=== PATIENT | female | born 1965 | race Caucasian/White ===

== ENCOUNTER 2019-05-26 11:20 | Emergency (ER) | payer BC ==
[2019-05-26] MEDS ORDERED: Ketorolac *IM* INJ* 60 MG/2 ML VIAL IM ONE (12:35)
[2019-05-26] MEDS ORDERED: Cyclobenzaprine TAB* 10 MG PO ONE (12:35)
[2019-05-26 14:04] VITALS: BP 123/89
--- NOTE | 2019-05-26 14:23 | ED ---
Back Pain - HPI Summary HPI Summary: This patient is a 53-year-old otherwise healthy female presenting to the ED after a fall 2 days ago. Patient states she fell directly onto her left side injuring her left ribs. She states since then, she feels the pain has gotten worse. Pain is notably over the left ribs without pain to the left upper quadrant. Denies any pain to the left shoulder or upper extremity. She denies hitting her head or LOC. She denies having a syncopal episode just prior to this event. Patient has good air exchange, states she does not want to take a deep breath due to pain. She has been taking [id number] medications as well as her prescribed Flexeril without relief of symptoms. - History of Current Complaint Chief Complaint: EDChestWallPain Stated Complaint: FALL-LEFT RIB PAIN PER PT Time Seen by Provider: 05/26/19 12:14 Hx Obtained From: Patient Onset/Duration: Sudden Onset Onset/Duration: Started Hours Ago Timing: Constant Back Pain Location: Is Discrete @ - left ribs Severity Initially: Moderate Severity Currently: Moderate Pain Intensity: 3 Pain Scale Used: 0-10 Numeric Character: Aching Alleviating Symptom(s): Rest, Position Associated Signs And Symptoms: Positive: Negative. Negative: Swelling, Redness , Bruising, Weakness, Numbness, Bladder Incontinence, Bowel Incontinence - Allergies/Home Medications Allergies/Adverse Reactions: Allergies Allergy/AdvReac Type Severity Reaction Status Date / Time No Known Allergies Allergy Verified 05/26/19 11:26 Home Medications: Home Medications Cholecalciferol (Vitamin D3) [Vitamin D3] 50,000 mcg PO WEEKLY 05/26/19 [ History Confirmed 05/26/19] Cyanocobalamin (Vitamin B-12) [Vitamin B-12] 1,000 mcg PO DAILY 05/26/19 [ History Confirmed 05/26/19] Cyclobenzaprine TAB* [Flexeril 10 MG TAB*] 5 mg PO TID PRN 05/26/19 [History Confirmed 05/26/19] Venlafaxine ER (NF) [Effexor ER (NF)] 75 mg PO BEDTIME 05/26/19 [History Confirmed 05/26/19] Venlafaxine HCl [Effexor XR-] 37.5 mg PO DAILY 05/26/19 [History Confirmed 05/26] clonazePAM TAB(*) [KlonoPIN TAB(*)] 0.5 mg PO BID PRN 05/26/19 [History Confirmed 05/26/19] PMH/Surg Hx/FS Hx/Imm Hx Previously Healthy: Yes - Immunization History Hx Pertussis Vaccination: No Immunizations Up to Date: Yes Infectious Disease History: No Infectious Disease History: Denies: Traveled Outside the [place] in Last 30 Days - Social History Occupation: Employed Full-time Lives: With Family Alcohol Use: Weekly Alcohol Amount: 3-4 Hx Substance Use: No Substance Use Type: Reports: None Smoking Status (MU): Never Smoked Tobacco Review of Systems Negative: Fever, Chills, Fatigue, Skin Diaphoresis Negative: Palpitations, Chest Pain Negative: Shortness Of Breath, Cough Genitourinary: Negative Positive: no symptoms reported, see HPI Positive: Arthralgia - left ribs Negative: Rash, Bruising All Other Systems Reviewed And Are Negative: Yes Physical Exam Triage Information Reviewed: Yes Vital Signs On Initial Exam: Initial Vitals Temp Pulse Resp BP Pulse Ox 97.7 F 110 22 146/103 97 05/26/19 11:21 05/26/19 11:21 05/26/19 11:21 05/26/19 11:21 05/26/19 11:21 Vital Signs Reviewed: Yes Appearance: Positive: Well-Appearing, Well-Nourished Skin: Positive: Warm, Skin Color Reflects Adequate Perfusion Head/Face: Positive: Normal Head/Face Inspection Eyes: Positive: EOMI, POLA, Conjunctiva Clear Respiratory/Lung Sounds: Positive: Clear to Auscultation, Breath Sounds Present Cardiovascular: Positive: RRR, Pulses are Symmetrical in both Upper and Lower Extremities Musculoskeletal: Positive: Normal, Strength/ROM Intact Neurological: Positive: Speech Normal Psychiatric: Positive: Normal, Affect/Mood Appropriate AVPU Assessment: Alert Procedures - Sedation Patient Received Moderate/Deep Sedation with Procedure: No Diagnostics - Vital Signs Vital Signs Temp Pulse Resp BP Pulse Ox 05/26/19 14:02 97.9 F 99 20 123/89 95 05/26/19 11:21 97.7 F 110 22 146/103 97 - Laboratory Lab Statement: Any lab studies that have been ordered have been reviewed, and results considered in the medical decision making process. Back Pain Course/Dx - Course Course Of Treatment: Patient is evaluated for left-sided rib pain. She has no chest pain on palpation. There is rib pain on light palpation to the upper ribs. No back pain to the cervical, thoracic or lumbar spine. Denies head injury. Lungs are CTA. RRR. Patient is a and O 3. She was given Toradol and Flexeril in the ED with good relief. States pain reduced from a 10/10 to a 1/10. Patient is resting comfortably. She is prescribed both Toradol and Flexeril. She is already prescribed Flexeril, however I have increased her dose to 10 mg twice a day 3 days. She is given a note for work. Diagnosed with left with contusion. - Diagnoses Differential Diagnosis/HQI/PQRI: Positive: Strain, Sprain Provider Diagnoses: Contusion of rib on left side Discharge ED - Sign-Out/Discharge Documenting (check all that apply): Patient Departure - Discharge Plan Condition: Stable Disposition: HOME Prescriptions: Cyclobenzaprine TAB* [Flexeril TAB*] 10 mg PO BID PRN #6 tab PRN Reason: Spasms Ketorolac TAB * [Toradol TAB *] 10 mg PO Q6H #16 tab Patient Education Materials: Rib Contusion (ED) Forms: *Work Release Referrals: Jonatan Copeland DO [Primary Care Provider] - Additional Instructions: Flexeril 10mg four times daily for spasms Toradol 10mg four times daily Moist heat to the area Out of work x 2 days - Billing Disposition and Condition Condition: STABLE Disposition: Home - Attestation Statements Provider Attestation: I was available for consult. This patient was seen by the [facility]. The patient was not presented to, seen by, or examined by me. Victor M Jaramillo MD
== END 2019-05-26 14:02 | disposition home or self-care (01) ==
LOC: ED 11:20
DX: S20.212A Contusion of left front wall of thorax, initial encounter (principal); R07.81 Pleurodynia; R21 Rash and other nonspecific skin eruption; W19.XXXA Unspecified fall, initial encounter; Y92.9 Unspecified place or not applicable; Z79.899 Other long term (current) drug therapy
CPT/HCPCS: 96372; 99282; A9270-GY; J1885

== ENCOUNTER 2019-07-13 01:50 | Inpatient (IN) | payer BC ==
[2019-07-13] MEDS ORDERED: Amiodarone 150 MG IVPREMIX* 150 MG/100 ML BAG IV ONE ×2 (02:32→02:46)
[2019-07-13] MEDS ORDERED: Ondansetron INJ* 2 MG/ML VIAL IV PRN (02:37)
[2019-07-13] MEDS ORDERED: Al Hydrox/Mg Hydrox/Simet LIQ* 30 ML UDC PO PRN (02:37)
[2019-07-13] MEDS ORDERED: Amiodarone 360 MG IVPREMIX* 360 MG/200 ML BAG IV ONE ×2 (02:46→10:10)
[2019-07-13] MEDS: Amiodarone 360 MG IVPREMIX* 360 MG/200 ML BAG IV ONE ×2 (03:20→08:57)
[2019-07-13] MEDS ORDERED: Iohexol 350* (CONTRAST) 500 ML MDV IV ONE (05:16)
[2019-07-13] MEDS ORDERED: Pantoprazole TAB * 40 MG TAB PO ONE (05:23)
[2019-07-13 06:33] LABS: ABS Lymphocytes 2.1 10^3/ul (1.0-4.8); ABS Monocytes 0.4 10^3/ul (0-0.8); ABS Neutrophils 2.9 10^3/ul (1.5-7.7); Eosinophil % 0.2 %; Hematocrit 35 % (35-47); Hemoglobin 11.8 g/dL (12.0-16.0); Lymphocyte % 38.5 %; Mean Corpuscular HGB Conc 34 g/dL (31-36); Mean Corpuscular Hemoglobin 32 pg (27-31); Mean Corpuscular Volume 93 fL (80-97); Mean Platelet Volume 7.9 fL (7.4-10.4); Nucleated Red Blood Cells % 0.1; Platelet Count 248 10^3/uL (150-450); Red Blood Count 3.72 10^6 /uL (3.70-4.87); Red Cell Distribution Width 15 % (10-15); White Blood Count 5.5 10^3/uL (3.5-10.8)
[2019-07-13 06:43] LABS: C Reactive Protein 88.31 mg/L (<8.01); Calcium 8.2 mg/dL (8.6-10.3); EGFR African American 168.4 (>60); EGFR Non-African American 139.2 (>60); Magnesium 1.9 mg/dL (1.9-2.7); Potassium 3.6 mmol/L (3.5-5.0)
[2019-07-13 06:46] LABS: Troponin I 0.01 ng/mL (<0.03)
--- NOTE | 2019-07-13 06:55 | HP ---
DATE OF ADMISSION: 07/13/2019 HISTORY OF PRESENT ILLNESS: This is a 53-year-old female with past medical history significant for GERD, anxiety, and arthritis. No established cardiac history. The patient is a transfer from [facility]. She presented with acute onset, worsening anterior chest spasms radiating toward the right side of her neck and back for one-day duration. This chest discomfort worsens with recumbency and deep inspiration. Patient stated that she went to her primary care physician in the morning for similar but more milder symptoms. There, she was tested for COVID-19 with a heart rate in the 120s. She was sent home with a Z-Christo and prednisone taper. Symptoms worsened as well as with pain which she feels them all with recumbency. There was associated shortness of breath and lightheadedness. The shortness of breath is worse with the palpitations she's feeling as well. She denied cough, fever, leg swelling, diplopia, and also denied prior history of DVT or blood clots. 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 She has had syncopal episodes in the past. In [facility] before she was transferred, she received therapeutic dose of Lovenox 95 mg subcutaneous. [facility] also reached out to Dr. Jluis Mckeon, the neurodiagnostic tech, who reviewed the patient's case with them, and they requested the patient should be sent to ICU when she arrives here, and also requested the patient be digitalized with 0.25 mg IV twice 30 mins apart. Patient also received ("Cardizem") 10 mg IV push three times and it did not break the A-fib, and she was subsequently placed on ( "Cardizem") drip, and transferred over to [facility]. PAST MEDICAL HISTORY: As already stated: 1. Anxiety. 2. GERD. 3. Arthritis. 4. Obesity. PAST SURGICAL HISTORY: Patient has had gastric bypass with bowel resection. HOME MEDICATIONS: 1. Venlafaxine 75 mg - patient states that she takes this at night. 2. Clonazepam 0.5 mg po bid prn for anxiety. 3. Vitamin D ergocalciferol 50,000 units po weekly. 4. Ascorbic acid 500 mg po daily. 5. Cyanocobalamin 500 mcg po daily. 6. Cyclobenzaprine 5 mg po tid. 7. Hydrocodone-acetaminophen 5/325 mg tablet, one tablet po q6 prn for severe pain. ALLERGIES: There are no known drug allergies. FAMILY HISTORY: Significant for heart disease, diabetes, and hypertension. SOCIAL HISTORY: She's a smoker. Works as a nurse at a local residential. Occasional alcohol use. Denied illicit drug use. REVIEW OF SYSTEMS: Constitutional - denies fever. HEENTM - denies, no symptoms reported. Respiratory - reports shortness of breath, dizziness, denies cough. Cardiovascular - reports chest pain, palpitations, denies syncope. GI - denies abdominal pain, nausea and vomiting. Musculoskeletal - reports neck pain. Skin - denies rash or any injury. Neurological - reports lightheadedness with palpitations, denies headache. Hematologic and lymphatics - denies blood clots or easy bleeding. All other systems reviewed are negative except as reported in the HPI. PHYSICAL EXAMINATION VITAL SIGNS: On arrival, temperature 97.8, respiratory rate 20, heart rate fluctuates between 120 to 140s, blood pressure 101/54, O2 sat 96%. GENERAL: Well-nourished, well-developed, not in any overt distress. HEENT: Head - atraumatic, normocephalic. Eyes - bilateral eye PERRL, bilateral eyes sclerae anicteric, conjunctiva normal, EOMI. Ears, nose, throat - normal inspection. Mouth and oropharynx - mucous membrane moist, no erythema, no exudate. NECK: Supple, no thyromegaly, no JVD. RESPIRATORY: Chest clear to auscultation bilaterally. No wheezes, no rales, no rhonchi, no crackles. CHEST: Symmetrical. CARDIOVASCULAR: Tachycardia, irregularly irregular. Peripheral pulses - 1+ radial right and the left. GI/ABDOMEN: Obese, soft, nondistended, nontender. Bowel sounds all four quadrants normal, no palpable masses. No guarding. BACK: No CVA tenderness. EXTREMITIES: Calves - non-tender, no edema. Negative Dima's sign. No tenderness to palpation of the deep venous system bilaterally. NEUROLOGIC: Alert, awake and oriented x3. CN II-XII grossly intact, no focal deficits. PSYCHIATRIC: Normal mood, normal affect. SKIN: Warm, dry, normal color, no rashes. DIAGNOSTIC STUDIES/LAB DATA: Hematology on arrival - WBC 6.69, RBC 4.57, hemoglobin 14.1, hematocrit 41.9, MCV 91.7, MCH 30.9, RDW 14.4, platelet count 355, MPV 9.2, neutrophils 7.27, lymphocytes 21.7. Chemistry - sodium 141, potassium 3.8, chloride 104, carbon dioxide 19, anion gap 18, BUN (pending), creatinine 0.7, estimated GFR non- 88, glucose 160, calcium 8.9 , total bilirubin 0.4, AST 55, ALT 46, alkaline phosphatase 106, troponin 0.01. Serum protein - total protein 7.7, albumin 3.3, globulin 4.4. TSH 1.44. INR 1.01. D-dimer 418. (This result was texted through the Backline from Cm Lacey MD at [facility]). BNP 86.3 EKG report from [facility] Afib with RVR with normal axis. No ischemic changes noted in ST segment. Chest x-ray report - no significant interval change from chest x-ray obtained earlier. Awaiting CTA report to rule out PE. ASSESSMENT AND PLAN: A 53-year-old female with no established cardiac history, a transfer from [facility], presents with acute onset worsening anterior chest spasms radiating to the right side of her neck and back and A-fib with RVR. Patient will be admitted to the unit. For the chest pain, pain control, monitor cardiac enzymes. For A-fib with RVR - patient came in on Cardizem drip and a loading dose of digoxin for A-fib with RVR with compromised blood pressure ranging between systolic pressure of 90-101. I will start patient on amiodarone drip and monitor. Patient to continue with Digoxin 0.25 mg for the 3rd loading dose 0900 a.m. If the blood pressure improves and the A-fib did not break, will consider adding a beta kalyn. I will also order CTA of the chest to rule out PE. TSH noted within normal range. I will also request an echocardiogram for cardiac function. Cardiology to follow up in a.m. For A-fib - patient already received therapeutic Lovenox at [facility], 95 mg subcu. I will start patient on Eliquis 5 mg bid, and monitor. For anxiety - patient to continue her home medication of venlafaxine 75 mg HS and Klonopin 0.5 mg prn for anxiety. For GERD - PPI. DIET: Cardiac diet. DVT PROPHYLAXIS: Patient already had therapeutic Lovenox at 5 mg subcu. Patient to start on Eliquis. CODE STATUS: The patient will remain full code at this time. Fluids and electrolytes - will be repleted as needed. Follow up a.m. labs. Follow up CTA report. Follow up echocardiogram. Follow up cardiology consult. COVID-19 r/o per protocol (Isolation protocol). TIME SPENT: Time spent on this admission greater than 65 minutes. [id number]/CPS #: [id number] [facility]
[2019-07-13] MEDS: Cyanocobalamin TAB* 500 MCG PO SCH (09:05)
[2019-07-13] MEDS: Apixaban* 5 MG TAB PO SCH ×2 (09:05→21:07)
[2019-07-13] MEDS: Digoxin TAB* 0.25 MG PO SCH (09:06)
[2019-07-13] MEDS: Docusate CAP* 100 MG PO SCH ×2 (09:06→21:07)
[2019-07-13] MEDS ORDERED: Potassium Chlor TAB* 10 MEQ TAB.ER PO ONE (09:11)
[2019-07-13] MEDS: clonazePAM TAB(*) 0.5 MG PO PRN ×2 (09:29→21:07)
--- NOTE | 2019-07-13 09:36 | ECHO ---
*[facility]* [place] [address] Fax #: [phone] Transthoracic Echocardiogram Patient: Christine Metz : 1965 Study Date: 07/13/2019 Age: 53 Gender: F HR: 150 bpm Height: 61 in /154.9 cm BSA: 2.05 m^2 Weight: 204.6 lb /93 kg BMI: 38.7 kg/m^2 *Safety Leader: * Analy Hernandez [facility] *Referring Physician: * Bethel Kumar *Reading Physician: * Jluis Mckeon MD Indications: Atrial Fibrillation. SOB. Chest Pain, unspecified. History: Palpitations. Risk factors: Obese. Conclusions Summary: - Left ventricle: The cavity size is below normal. Wall thickness is mildly to moderately increased. Systolic function is at the lower limits of normal. The estimated ejection fraction is 50-55%. Wall motion is normal; there are no regional wall motion abnormalities. - Right ventricle: Systolic function is normal. Systolic pressure is within the normal range. - Left atrium: The atrium is mildly dilated. - Mitral valve: There is trace regurgitation. - Aortic valve: There is no evidence of stenosis. - Tricuspid valve: There is mild regurgitation. - Study data: No prior study is available for comparison. Study data: Transthoracic echocardiogram. Procedure: Transthoracic echocardiography was performed. Image quality was fair. Complete 2D, spectral Doppler, and color flow Doppler. Location: ICU Patient status: Inpatient. Patient room number: ICU-13. No prior study is available for comparison. Rhythm: Atrial fibrillation. Findings Left ventricle: The cavity size is below normal. Wall thickness is mildly to moderately increased. Systolic function is at the lower limits of normal. The estimated ejection fraction is 50-55%. Wall motion is normal; there are no regional wall motion abnormalities. Left ventricular diastolic function parameters are indeterminate. Right ventricle: The cavity size is normal. Systolic function is normal. Systolic pressure is within the normal range. Left atrium: The atrium is mildly dilated. Right atrium: The atrium is normal in size. Mitral valve: The leaflets are mildly thickened. There is no evidence of stenosis. There is trace regurgitation. Aortic valve: The valve is trileaflet. The leaflets are mildly thickened. There is no evidence of stenosis. There is trace regurgitation. Tricuspid valve: The leaflets are normal thickness. There is no evidence of stenosis. There is mild regurgitation. Pulmonic valve: The leaflets are normal thickness. There is no evidence of stenosis. There is trace regurgitation. Aorta: Aortic root: The aortic root is appears normal. Ascending aorta: The ascending aorta is appears normal. Aortic arch: The aortic arch is appears normal. Pericardium: A prominent pericardial fat pad is present. There is no significant pericardial effusion. Pulmonary arteries: The main pulmonary artery is normal-sized. Systolic pressure is within the normal range. Systemic veins: Inferior vena cava: Not well visualized. Measurements Left ventricle Value Ref Aortic valve Value Ref REGINA, LAX (L) 3.4 cm 3.8 - Clementina diam, S (L) 1.8 cm 1.9 - 2.7 5.2 Peak v, S 1.01 m/sec --------- ESD, LAX (L) 1.8 cm 2.2 - VTI, S 14.9 cm --------- 3.5 Mean grad, S 2.9 mm Hg --------- FS, LAX (H) 53 % 27 - 45 Peak grad, S 4.1 mm Hg --------- PW, ED, LAX (H) 1.2 cm 0.6 - LVOT/AV, VTI ratio 0.87 --------- 0.9 FS (H) 53 % 27 - 45 Mitral valve Value Ref Mid-wall FS 14 % -------- Peak E 0.82 m/sec --------- PW, ED (H) 1.2 cm 0.6 - Peak A 0.01 m/sec --------- 0.9 Decel time 77 ms --------- E', lat clementina, TDI 11.9 cm/sec >=10.0 Peak grad, D 2.7 mm Hg -- ------- E/e', lat clementina, TDI 7 -------- Peak E/A ratio 133.89 ----- ---- E', med clementina, TDI 8.0 cm/sec >=7.0 E/e', med clementina, TDI 10 -------- Pulmonic valve Value Ref E', avg, TDI 10.0 cm/sec -------- Peak v, S 1.16 m/sec ----- ---- E/e', avg, TDI 8 <=14 Peak grad, S 5.4 mm Hg -- ------- LVOT Value Ref Tricuspid valve Value Ref Peak alexandre, S 0.93 m/sec -------- TR peak v 2.34 m/sec <=2.8 VTI, S 12.9 cm -------- Peak RV-RA grad, S 22 mm Hg --------- Peak grad, S 3 mm Hg -------- Mean grad, S 2 mm Hg -------- Aortic root Value Ref Root diam 2.9 cm <4.2 Ventricular septum Value Ref IVS, ED (H) 1.3 cm 0.6 - Ascending aorta Value Ref 0.9 AAo AP diam, S 3.1 cm --------- Right ventricle Value Ref Aortic arch Value Ref AW thickness, ED (H) 0.6 cm 0.1 - Arch diam 2.2 cm --------- 0.5 REGINA, LAX 2.7 cm -------- Decending aorta Value Ref REGINA minor ax, A4C 2.8 cm 1.9 - Darby peak alexandre 0.65 m/sec --------- mid 3.5 Pressure, S 30 mm Hg -------- Pulmonary artery Value Ref Pressure, S 24.6 mm Hg --------- Left atrium Value Ref LA ID 4.1 cm -------- SI dim ES, LAX 4.1 cm -------- ML dim, A4C 4.5 cm -------- SI dim, A4C 5.7 cm -------- Vol, ES, 2-p 64 ml -------- Vol/bsa, ES, 2-p 31 ml/m^2 16 - 34 Right atrium Value Ref SI dim, ES 4.7 cm 3.4 - 5.3 ML dim, ES, A4C 3.8 cm 2.6 - 4.4 Estimated RAP 8 mm Hg -------- Legend: (L) and (H) ana maria values outside specified reference range. Prepared and electronically signed by Jluis Mckeon MD 07/13/2019 09:35
[2019-07-13 10:20] LABS: Erythrocyte Sed Rate 30 mm/Hr (0-29)
--- NOTE | 2019-07-13 14:07 | CONS ---
CC: Dr. Copeland * CONSULTATION REPORT: DATE OF CONSULT: 07/13/19 ATTENDING PHYSICIAN: Dr. Jluis Mckeon, Cardiology.* (DICTATED BY KOSTAS COLEMAN NP) PRIMARY CARE PHYSICIAN: Dr. Copeland. CHIEF COMPLAINT: Diaphoresis, chest pain, shortness of breath, tachycardia. HISTORY OF PRESENT ILLNESS: This is a pleasant 53-year-old female patient with a notable history of gastric reflux, anxiety, osteoarthritis, obesity, and moderate alcohol consumption, who presented to [facility] on 07/12/19 due to ongoing complaints of tachycardia, shortness of breath, and pleuritic chest pain. The patient states she has been in her usual state of health up until this past 07/11/19. The patient states that during the daytime hours on 07/11/19 she started to develop pleuritic chest pain that was worse with inspiration and supine position. She states it was not related to activity. She also reports increased fatigue, sensation of heart racing and irregularity, and intermittent shortness of breath. The patient states she went to work Friday where she does overnight shifts at [employer], she is employed as a nurse. Throughout her overnight shift Friday she continued to have intermittent sensation of heart racing and irregularity with pleuritic chest pain described as spasming radiating into her neck with lightheadedness and shortness of breath. The patient states that when she completed her shift Friday, she called her primary physician and was evaluated. She states she was tested for influenza and COVID-19. She adds that her heart rate was 120 beats per minute at Dr. Copeland' office. She denies having an EKG. She states she was prescribed Z-Christo and steroid taper and was asked to self- quarantine at home. She states that when she got home she was able to sleep for 4 to 5 hours; however, when she woke up yesterday evening, she continued to experience diaphoresis, sensation of heart racing and irregularity, and pleuritic chest pain described as spasming radiating into her neck. Again, it was positional. She opted for evaluation at [facility]. While being evaluated, she was found to be in AFib with rapid ventricular rate response. Troponin was 0.1. TFTs were normal. She was given IV Cardizem, IV digoxin, and was transferred to [facility]. She has since been given 150 mg bolus of amiodarone. and has been maintained on amiodarone drip going at a milligram a minute. She continues to be in AFib with rapid ventricular rate response ranging from 130 to 160 beats per minute. She continues to be symptomatic with a sensation of heart racing and irregularity. She is not tachypneic. She denies diarrhea. Denies objective fever. Does add that she had an episode of emesis yesterday. Denies hematemesis, abdominal pain, or diarrhea. She states that last episode of chest pain was yesterday in the emergency department at [place]. CTA is pending to rule out PE. The patient had echocardiogram this morning, which is pending. She offers no other complaints at this time. She states that although several inmates have been quarantined at [employer] for rule out COVID, they have all tested negative. She is not aware of any positive COVID exposure. Chest pain again was not related to exertion, but rather was pleuritic in nature and worse in the supine position. Last ischemic evaluation per the patient was at [place] in the past 2 years due to complaints of chest pain. She states she had a nuclear stress test, which was "normal." PAST MEDICAL HISTORY: 1. GERD. 2. Anxiety/depression. 3. Arthritis. 4. Obesity. 5. Moderate alcohol consumption. PAST SURGICAL HISTORY: Includes: 1. Gastric bypass. 2. Bowel resection. HOME MEDICATIONS: Per admission med rec include: 1. Klonopin 0.5 mg p.o. b.i.d. 2. Venlafaxine ER 75 mg a day. 3. Vitamin B12 1000 mcg daily. 4. Effexor 37.5 mg daily. 5. Toradol 10 mg p.o. q.6 hours p.r.n. 6. Flexeril as needed. ALLERGIES: Listed as no known drug allergies. Denies allergy to contrast dye or shellfish. FAMILY HISTORY: Positive for hypertension and hyperlipidemia. SOCIAL HISTORY: The patient is , lives home alone. She is a former tobacco user, quit smoking approximately 5 years ago. She consumes 4 to 6 shots of vodka a day. She is employed as a nurse at [employer]. Denies illegal substance use. REVIEW OF SYSTEMS: All systems have been reviewed and are otherwise negative except what was above mentioned in the HPI. PHYSICAL EXAM: Vital Signs: Last temperature was at [place], per the patient she was afebrile; pulse is 150 beats per minute; respirations 24; oxygenation 96 % on room air; blood pressure 103/85. General: The patient is sitting upright in bed upon entering room, appears in no apparent distress, is cooperative and pleasant, appears well nourished. HEENT: Head is atraumatic, normocephalic. Oral mucosa is moist. Tongue is midline. Neck: Supple. Trachea midline. No JVD. No carotid bruits. Cardiac: Tachycardic. S1, S2. Irregular rate and rhythm. No murmur, rub, or gallop noted. Lungs: Auscultated posteriorly. No evidence of adventitious breath sounds. /GI: Abdomen is obese, soft, nontender, nondistended. Normoactive bowel sounds x4. Extremities: No pedal edema, no clubbing, no cyanosis. Peripheral Vascular: 3+ brachial pulse palpated bilaterally and symmetrically, 2+ dorsalis pedis palpated bilaterally and symmetrically. DIAGNOSTIC STUDIES/LAB DATA: Blood work from 07/13/19 reviewed. White count 5.5, hemoglobin 11.8, hematocrit 35, platelets 284,000. Sodium 138, potassium 3.6, chloride 109, carbon dioxide 21, creatinine 0.47. C-reactive protein 88. Magnesium 1.9, glucose 138. CTA pending. Echocardiogram pending. ECG on 07/13/19 reviewed. AFib, RVR, rate 149 beats per minute with minimal inferolateral ST depression. No ST segment elevation appreciated. ASSESSMENT AND PLAN: 1. Newly diagnosed symptomatic atrial fibrillation with rapid ventricular response. CHADS-VASc 1 given gender is female. The patient is on IV amiodarone. Systolic blood pressure is 103. She is status post IV digoxin load. Cardizem was discontinued due to relative hypotension. She continues to be aware of atrial fibrillation. It is manifesting as sensation of palpitations and heart racing. Etiology not known at this time. TFTs were normal. She does report moderate to heavy alcohol use history, consuming anywhere from 4 to 6 shots of vodka a day. She is currently being ruled out for COVID-19. CTA is pending to rule out pulmonary embolism. At this current time , recommend rate control approach. We would continue IV amiodarone with a goal of keeping potassium more than 4, magnesium more than 2. Continue digoxin and await further testing. Unfortunately, due to the patient being ruled out for COVID, we would not proceed with transesophageal echocardiogram cardioversion at this time. Duration of time in atrial fibrillation appears to have been at least since 07/11/19; however, she reports a longstanding history of daily palpitations for several years, thus duration of time in atrial fibrillation is truly unknown. Echo to be updated to rule out LV dysfunction and pericardial effusion.continue eliquis 5mg PO BID. 2. Complaints of pleuritic chest pain, intermittent shortness of breath, and diaphoresis. COVID-19 test obtained and is pending. The patient to have CTA to rule out pulmonary embolism. Defer to primary team. 3. History of moderate to heavy alcohol use. Defer to primary team. 4. Disposition: Pending course. The patient is full code. Dr. Jluis Mckeon has personally seen and examined the patient and agrees with the above assessment and plan. KOSTAS COLEMAN NP [id number]/CPS #: [id number] CELINE
[2019-07-13] MEDS: Amiodarone 360 MG IVPREMIX* 360 MG/200 ML BAG IV SCH (15:15)
[2019-07-13] MEDS: Venlafaxine EXT RELEASE CAP* 75 MG PO SCH (21:06)
[2019-07-13] MEDS: Cyclobenzaprine TAB* 10 MG PO PRN (21:07)
[2019-07-14] MEDS: Amiodarone 360 MG IVPREMIX* 360 MG/200 ML BAG IV SCH (01:21)
[2019-07-14 06:02] LABS: ABS Lymphocytes 1.4 10^3/ul (1.0-4.8); ABS Monocytes 0.3 10^3/ul (0-0.8); Eosinophil % 1.2 %; Hematocrit 35 % (35-47); Lymphocyte % 37.4 %; Mean Corpuscular HGB Conc 34 g/dL (31-36); Mean Corpuscular Hemoglobin 32 pg (27-31); Mean Corpuscular Volume 93 fL (80-97); Mean Platelet Volume 7.7 fL (7.4-10.4); Nucleated Red Blood Cells % 0.2; Platelet Count 226 10^3/uL (150-450); Red Blood Count 3.75 10^6 /uL (3.70-4.87); Red Cell Distribution Width 15 % (10-15); White Blood Count 3.7 10^3/uL (3.5-10.8)
[2019-07-14 06:21] LABS: BUN/Creatinine Ratio 16.1 (8-20); Calcium 8.5 mg/dL (8.6-10.3); EGFR African American 137.6 (>60); EGFR Non-African American 113.7 (>60); Potassium 3.8 mmol/L (3.5-5.0)
[2019-07-14] MEDS: Digoxin TAB* 0.25 MG PO SCH (07:57)
[2019-07-14] MEDS: Pantoprazole TAB * 40 MG TAB PO SCH (07:58)
[2019-07-14] MEDS: Cyanocobalamin TAB* 500 MCG PO SCH (07:58)
[2019-07-14] MEDS: Docusate CAP* 100 MG PO SCH ×2 (07:58→21:07)
[2019-07-14] MEDS: Apixaban* 5 MG TAB PO SCH ×2 (07:58→21:10)
[2019-07-14] MEDS: Amiodarone TAB* 400 MG PO SCH ×2 (11:17→21:35)
[2019-07-14] MEDS: Acetaminophen TAB* 325 MG PO PRN ×3 (11:17→21:09)
--- NOTE | 2019-07-14 11:34 | PN ---
Subjective Date of Service: 07/14/19 - CC: SOB, PAF Interval History: Pt now maintaining sinus rhythm. Complete resolution of SOB, pleuritic CP New c/o: awareness of lymph nodes anterior neck, felt them swallowing. Denies dysphagia, denies sore throat. Medications Active Medications: Acetaminophen (Tylenol Tab*) 650 mg PO Q4H PRN PRN Reason: MILD PAIN or TEMP > 100.4 Last Admin: 07/14/19 11:17 Dose: 650 mg Al Hydrox/Mg Hydrox/Simethicone (Maalox Plus*) 30 ml PO Q6H PRN PRN Reason: INDIGESTION Amiodarone HCl (Cordarone Tab*) 400 mg PO BID [facility] Stop: 07/20/19 22:00 Last Admin: 07/14/19 11:17 Dose: 400 mg Apixaban (Eliquis*) 5 mg PO BID [facility] Last Admin: 07/14/19 07:58 Dose: 5 mg Clonazepam (Klonopin Tab(*)) 0.5 mg PO BID PRN PRN Reason: INSOMNIA Last Admin: 07/13/19 21:07 Dose: 0.5 mg Cyanocobalamin (Vitamin B12 Tab*) 1,000 mcg PO DAILY [facility] Last Admin: 07/14/19 07:58 Dose: 1,000 mcg Cyclobenzaprine HCl (Flexeril Tab*) 5 mg PO TID PRN PRN Reason: SPASMS Last Admin: 07/13/19 21:07 Dose: 5 mg Digoxin (Lanoxin Tab*) 0.25 mg PO 0900 [facility] Last Admin: 07/14/19 07:57 Dose: 0.25 mg Docusate Sodium (Colace Cap*) 100 mg PO BID [facility] Last Admin: 07/14/19 07:58 Dose: Not Given Ondansetron HCl (Zofran Inj*) 4 mg IV Q4H PRN PRN Reason: NAUSEA/VOMITING Pantoprazole Sodium (Protonix Tab*) 40 mg PO DAILY [facility] Last Admin: 07/14/19 07:58 Dose: Not Given Venlafaxine HCl (Effexor Xr Cap*) 75 mg PO BEDTIME [facility] Last Admin: 07/13/19 21:06 Dose: 75 mg Objective Vital Signs: Temp Pulse Resp BP Pulse Ox 98.8 F 81 16 94/53 96 07/14/19 08:00 07/14/19 08:01 07/14/19 08:01 07/14/19 08:01 07/14/19 08:01 Oxygen Devices in Use Now: None Appearance: Older middle aged woman, comfortable. Lying at 10 degrees Eyes: No Scleral Icterus, PERRLA Ears/Nose/Mouth/Throat: Clear Oropharnyx, Mucous Membranes Moist Neck: Trachea Midline, No Thyroid Enlargement, Masses - no appreciation of lymphadenopathy the patient feels. Respiratory: Symmetrical Chest Expansion and Respiratory Effort, Clear to Auscultation Cardiovascular: NL Sounds; No Murmurs; No JVD, RRR Extremities: No Edema, No Clubbing, Cyanosis Skin: No Rash or Ulcers Neurological: Alert and Oriented x 3, NL Muscle Strength and Tone Lines/Tubes/Other Access: Clean, Dry and Intact Peripheral IV Laboratory Results: 07/14/19 05:50 07/14/19 05:50 07/13/19 05:45 Troponin I 0.01 CRP 88 ESR 30 Diagnostic Imaging: *[facility]* [place] [address] Fax #: [phone] Transthoracic Echocardiogram Patient: Sheba Sullivan : 1965 Study Date: 07/13/2019 Age: 53 Gender: F HR: 150 bpm Height: 61 in /154.9 cm BSA: 2.05 m^2 Weight: 204.6 lb /93 kg BMI: 38.7 kg/m^2 *Boatswains Mate: * Analy Hernandez [facility] *Referring Physician: * Bethel Kumar *Reading Physician: * Jluis Mckeon MD Indications: Atrial Fibrillation. SOB. Chest Pain, unspecified. History: Palpitations. Risk factors: Obese. Conclusions Summary: - Left ventricle: The cavity size is below normal. Wall thickness is mildly to moderately increased. Systolic function is at the lower limits of normal. The estimated ejection fraction is 50-55%. Wall motion is normal; there are no regional wall motion abnormalities. - Right ventricle: Systolic function is normal. Systolic pressure is within the normal range. - Left atrium: The atrium is mildly dilated. - Mitral valve: There is trace regurgitation. - Aortic valve: There is no evidence of stenosis. - Tricuspid valve: There is mild regurgitation. - Study data: No prior study is available for comparison. Study data: Transthoracic echocardiogram. Procedure: Transthoracic echocardiography was performed. Image quality was fair. Complete 2D, spectral Doppler, and color flow Doppler. This report is only to be considered final once signed by the Provider(s) as displayed in the "<Electronically Signed by >" field (s). Absence of a signature indicates the report is in a draft status and still needs to be finalized. In the event this document was created by someone other than the signing Provider, the individual initiating the document will be listed in the "Entered by:" or "Dictated by:" wagoner. Patient Name: SHEBA SULLIVAN Medical Record#: [id number] Ordering Physician: Bethel Kumar DO Acct.#: [id number] : 1965 Age: 53 Sex: F Location: [facility] Exam Date: 07/13/19423 ADM Status: ADM IN Order Information: CTA CHEST Accession Number: [id number] CPT: 38563 HISTORY: Chest pain with SOB and tachycardia COMPARISONS: February 05, 2017 TECHNIQUE: Multiple contiguous axial CT scans of the chest were obtained after the administration of nonionic intravenous contrast, timed to the pulmonary arterial phase of contrast enhancement.. Coronal and sagittal multiplanar reformations are also submitted for review. CONTRAST: Administered 78.0 ml of OMNIPAQUE 350 mg/ml FINDINGS: NECK AND THYROID: The lower neck and thyroid are unremarkable. CHEST WALL: There is no lower cervical, axillary, or supraclavicular lymphadenopathy by size criteria. HEART AND PERICARDIUM: The heart is unremarkable. AORTA AND PULMONARY VASCULATURE: There is no pulmonary arterial filling defect to suggest pulmonary embolism. There is no linear filling defect within the aorta to suggest aortic dissection. MEDIASTINUM: There is no mediastinal lymphadenopathy by size criteria. ANGEL: There is no hilar lymphadenopathy by size criteria. AIRWAY AND ESOPHAGUS: The airway is unremarkable, without endobronchial filling defect. The esophagus is grossly normal. LUNG PARENCHYMA: There is a 0.7 cm nonsolid nodule of the right upper lobe on axial image 20 of series 3. PLEURA: No pleural abnormalities are noted. UPPER ABDOMEN: There is hepatomegaly with fatty infiltration of liver. There is postsurgical change to the upper GI tract. BONES AND SOFT TISSUES: No bone or soft tissue abnormalities are noted. OTHER: None. IMPRESSION: 1. NO PULMONARY ARTERIAL FILLING DEFECT TO SUGGEST PULMONARY EMBOLISM. 2. 0.7 CM NONSOLID NODULE OF THE RIGHT UPPER LOBE. THE RECOMMENDATIONS FOR FOLLOWUP AND MANAGEMENT OF AN INCIDENTALLY DETECTED NONSOLID PULMONARY NODULE GREATER THAN OR EQUAL TO 6 MM IN SIZE, IN A PATIENT WITHOUT A HISTORY OF MALIGNANCY, INCLUDE FOLLOW-UP CT IN 6-12 MONTHS TO CONFIRM PERSISTENCE, THEN CT EVERY 2 YEARS UNTIL 5 YEARS.. 3. HEPATOMEGALY WITH FATTY INFILTRATION OF LIVER. NOTES: SIZE = AVERAGE LENGTH AND WIDTH; HIGH RISK IS DEFINED A HISTORY OF SMOKING OR OTHER KNOW RISK FACTORS FOR LUNG CANCER; LOW RISK IS DEFINED MINIMAL OR ABSENT HISTORY OF SMOKING OR OTHER KNOWN RISK FACTORS. Edith Bermudez, ENRIQUE Thompson, ANGIE Rollins, et al (2017) "Guidelines for Management of Incidental This report is only to be considered final once signed by the Provider(s) as displayed in the "<Electronically Signed by >" field (s). Absence of a signature indicates the report is in a draft status and still needs to be finalized. In the event this document was created by someone other than the signing Provider, the individual initiating the document will be listed in the "Entered by:" or "Dictated by:" wagoner. 1 of 2 EKG Data: Tele 07/14/2019: NSR Assessment/Plan 53 yo female who presented with afib, RVR with pleuritic CP, fatigue. She states she did not feel racing yesterday, but has intermittently in the past for 2 years. Now with resolution of the above symptoms in NSR. New sensation of enlarged lymph notes. PAF: Contributing factors include: Age/weight/alcohol/past smoking hx. Currently on amiodarone loading and Eliquis. I recommend continue amiodarone 400 BID x 5 days, then 400 mg daily for 5 days. Continue Eliquis 1 month at least even with young age. I discussed alcohol impact on afib (drinks 6 EtOH beverages/day) as well as weight. Patient concerned about amiodarone side effects, I educated patient on timing of amiodarone side effects, she is aware there are other antiarrhythmic options that could be substituted in the future. Optimize electrolytes while here, ideally KCl 4-4.5, normal Mag and Ca++ F/u with Dr Mckeon approx 2 weeks. Elevated ESR/CRP and patient noting swollen glands neck, defer to hospitalists. Aware COVID negative from sample in [place]. From a cardiac standpoint OK for floor or discharge.
--- NOTE | 2019-07-14 11:37 | PN ---
Date of Service: 07/14/19 Critical Care Services: Converted to RSR while having a BM last night Vital Signs: Temp Pulse Resp BP SpO2 FiO2 37.1 C 81 16 94/53 96 07/14/19 08:00 07/14/19 08:01 07/14/19 08:01 07/14/19 08:01 07/14/19 08:01 Physical Exam: Gen: no distress HEENT: NCAT, PERRL Lungs: CLear Cardiac: S1S2 regular Abdomen: benign Extremities: no edema Neuro: grossly non-focal Fluid Balance (Past 24 Hours): I= O= Net Intake & Output 07/12/19 07/13/19 07/14/19 07/15/19 06:59 06:59 06:59 06:59 Intake Total 370 1324 0 Output Total 0 0 Balance 370 1324 0 Weight 93.712 kg 93.259 kg Intake: Medicated IV 190 414 CC - Amiodarone 103 414 amiodarone 87 Oral 180 910 0 Output: Urine 0 0 Other: Estimated Void Medium Small Date of Last Bowel 07/13/2019 Movement Estimated Stool Amount Small # Voids 1 1 Labs: Laboratory Results - last 24 hr 07/13/19 07/14/19 07/14/19 17:04 05:50 05:50 WBC 3.7 RBC 3.75 Hgb 12.0 Hct 35 MCV 93 MCH 32 H MCHC 34 RDW 15 Plt Count 226 MPV 7.7 Neut % (Auto) 53.1 Lymph % (Auto) 37.4 [place] % (Auto) 7.6 Eos % (Auto) 1.2 Baso % (Auto) 0.7 Absolute Neuts (auto) 2.0 Absolute Lymphs (auto) 1.4 Absolute Monos (auto) 0.3 Absolute Eos (auto) 0.0 Absolute Basos (auto) 0.0 Absolute Nucleated RBC 0.0 Nucleated RBC % 0.2 Sodium 138 Potassium 3.8 Chloride 110 Carbon Dioxide 22 Anion Gap 6 BUN 9 Creatinine 0.56 Est GFR ( Amer) 137.6 Est GFR (Non-Af Amer) 113.7 BUN/Creatinine Ratio 16.1 Glucose 111 H Calcium 8.5 L Magnesium 2.0 Digoxin 0.7 L Studies: ECHO EF 55, thick wall, LAE Nutrition: Eating Impression: Afib RVR now with adequate rate and rhythm control Plan: Afib RVR - now with adequate rate and rhythm control. Amiodarone converted to PO to continue the load, that, and further negative chronotrope regimen per cardiology. CHADS assessment and indication for anticoagulation will be per cardiology. I did open the discussion with her. Anxiety - contineu Klonopin and effexor. SOB - resolved with rate control and COVID negative. OK to floor.
[2019-07-14] MEDS: clonazePAM TAB(*) 0.5 MG PO PRN (21:08)
[2019-07-14] MEDS: Venlafaxine EXT RELEASE CAP* 75 MG PO SCH (21:10)
[2019-07-14] MEDS: Cyclobenzaprine TAB* 10 MG PO PRN (21:18)
[2019-07-15 08:36] LABS: BUN/Creatinine Ratio 16.1 (8-20); Calcium 8.6 mg/dL (8.6-10.3); EGFR African American 137.6 (>60); EGFR Non-African American 113.7 (>60); Potassium 4.4 mmol/L (3.5-5.0)
[2019-07-15] MEDS: Amiodarone TAB* 400 MG PO SCH (09:00)
[2019-07-15] MEDS: Digoxin TAB* 0.25 MG PO SCH (09:00)
[2019-07-15] MEDS: Cyanocobalamin TAB* 500 MCG PO SCH (09:00)
[2019-07-15] MEDS: Acetaminophen TAB* 325 MG PO PRN (09:01)
[2019-07-15] MEDS: Apixaban* 5 MG TAB PO SCH (09:01)
[2019-07-15] MEDS: Pantoprazole TAB * 40 MG TAB PO SCH (09:08)
[2019-07-15] MEDS: Docusate CAP* 100 MG PO SCH (09:08)
[2019-07-15 09:13] LABS: TSH (Thyroid Stimulating Horm) 3.5 mcIU/mL (0.34-5.60)
[2019-07-15 12:16] VITALS: BP 124/72
--- NOTE | 2019-07-15 12:35 | PN ---
<Jenna Funes - Last Filed: 07/15/19 12:25> Subjective Date of Service: 07/15/19 - newly diagnosed PAF, ETOH abuse. Interval History: No events last night, patient is s/p chemical CV via IV amiodarone for symptomatic PAF with RVR. She has maintained NSR> She offers no complaints such as chest pain, sob, peters, palpitations or dizziness. She is anxious to go home but is asking to not return to work until Friday. Medications Active Medications: Acetaminophen (Tylenol Tab*) 650 mg PO Q4H PRN PRN Reason: MILD PAIN or TEMP > 100.4 Last Admin: 07/15/19 09:01 Dose: 650 mg Al Hydrox/Mg Hydrox/Simethicone (Maalox Plus*) 30 ml PO Q6H PRN PRN Reason: INDIGESTION Amiodarone HCl (Cordarone Tab*) 400 mg PO BID [facility] Stop: 07/20/19 22:00 Last Admin: 07/15/19 09:00 Dose: 400 mg Apixaban (Eliquis*) 5 mg PO BID [facility] Last Admin: 07/15/19 09:01 Dose: 5 mg Clonazepam (Klonopin Tab(*)) 0.5 mg PO BID PRN PRN Reason: INSOMNIA Last Admin: 07/14/19 21:08 Dose: 0.5 mg Cyanocobalamin (Vitamin B12 Tab*) 1,000 mcg PO DAILY [facility] Last Admin: 07/15/19 09:00 Dose: 1,000 mcg Cyclobenzaprine HCl (Flexeril Tab*) 5 mg PO TID PRN PRN Reason: SPASMS Last Admin: 07/14/19 21:18 Dose: 5 mg Digoxin (Lanoxin Tab*) 0.25 mg PO 0900 [facility] Last Admin: 07/15/19 09:00 Dose: 0.25 mg Docusate Sodium (Colace Cap*) 100 mg PO BID [facility] Last Admin: 07/15/19 09:08 Dose: Not Given Ondansetron HCl (Zofran Inj*) 4 mg IV Q4H PRN PRN Reason: NAUSEA/VOMITING Pantoprazole Sodium (Protonix Tab*) 40 mg PO DAILY [facility] Last Admin: 07/15/19 09:08 Dose: Not Given Venlafaxine HCl (Effexor Xr Cap*) 75 mg PO BEDTIME [facility] Last Admin: 07/14/19 21:10 Dose: 75 mg Objective Vital Signs: Temp Pulse Resp BP Pulse Ox 97.7 F 70 16 124/72 98 07/15/19 12:00 07/15/19 12:00 07/15/19 12:00 07/15/19 12:00 07/15/19 12:00 Oxygen Devices in Use Now: None Appearance: Older middle aged woman, comfortable. Lying at 10 degrees Eyes: No Scleral Icterus, PERRLA Ears/Nose/Mouth/Throat: Clear Oropharnyx, Mucous Membranes Moist Neck: Trachea Midline, No Thyroid Enlargement, Masses - no appreciation of lymphadenopathy the patient feels. Respiratory: Symmetrical Chest Expansion and Respiratory Effort, Clear to Auscultation Cardiovascular: NL Sounds; No Murmurs; No JVD, RRR Extremities: No Edema, No Clubbing, Cyanosis Skin: No Rash or Ulcers Neurological: Alert and Oriented x 3, NL Muscle Strength and Tone Lines/Tubes/Other Access: Clean, Dry and Intact Peripheral IV Laboratory Results: 07/14/19 05:50 07/15/19 08:13 TSH 3.50 mcIU/mL (0.34-5.60) 07/15/19 08:13 07/13/19 05:45 Troponin I 0.01 Laboratory Results - last 24 hr 07/15/19 08:13 Sodium 137 Potassium 4.4 Chloride 110 Carbon Dioxide 22 Anion Gap 5 BUN 9 Creatinine 0.56 Est GFR ( Amer) 137.6 Est GFR (Non-Af Amer) 113.7 BUN/Creatinine Ratio 16.1 Glucose 105 H Calcium 8.6 TSH 3.50 Diagnostic Imaging: *[facility]* [facility] [address] [place] [address] Fax #: [phone] Transthoracic Echocardiogram Patient: Sheba Sullivan : 1965 Study Date: 07/13/2019 Age: 53 Gender: F HR: 150 bpm Height: 61 in /154.9 cm BSA: 2.05 m^2 Weight: 204.6 lb /93 kg BMI: 38.7 kg/m^2 *Watermaster: * Analy Hernandez [facility] *Referring Physician: * Bethel Kumar *Reading Physician: * Jluis Mckeon MD Indications: Atrial Fibrillation. SOB. Chest Pain, unspecified. History: Palpitations. Risk factors: Obese. Conclusions Summary: - Left ventricle: The cavity size is below normal. Wall thickness is mildly to moderately increased. Systolic function is at the lower limits of normal. The estimated ejection fraction is 50-55%. Wall motion is normal; there are no regional wall motion abnormalities. - Right ventricle: Systolic function is normal. Systolic pressure is within the normal range. - Left atrium: The atrium is mildly dilated. - Mitral valve: There is trace regurgitation. - Aortic valve: There is no evidence of stenosis. - Tricuspid valve: There is mild regurgitation. - Study data: No prior study is available for comparison. Study data: Transthoracic echocardiogram. Procedure: Transthoracic echocardiography was performed. Image quality was fair. Complete 2D, spectral Doppler, and color flow Doppler. This report is only to be considered final once signed by the Provider(s) as displayed in the "<Electronically Signed by >" field (s). Absence of a signature indicates the report is in a draft status and still needs to be finalized. In the event this document was created by someone other than the signing Provider, the individual initiating the document will be listed in the "Entered by:" or "Dictated by:" wagoner. Patient Name: SHEBA SULLIVAN Medical Record#: [id number] Ordering Physician: Bethel Kumar DO Acct.#: [id number] : 1965 Age: 53 Sex: F Location: [facility] CARE UNIT Exam Date: 07/13/19423 ADM Status: ADM IN Order Information: CTA CHEST Accession Number: [id number] CPT: 37726 HISTORY: Chest pain with SOB and tachycardia COMPARISONS: February 05, 2017 TECHNIQUE: Multiple contiguous axial CT scans of the chest were obtained after the administration of nonionic intravenous contrast, timed to the pulmonary arterial phase of contrast enhancement.. Coronal and sagittal multiplanar reformations are also submitted for review. CONTRAST: Administered 78.0 ml of OMNIPAQUE 350 mg/ml FINDINGS: NECK AND THYROID: The lower neck and thyroid are unremarkable. CHEST WALL: There is no lower cervical, axillary, or supraclavicular lymphadenopathy by size criteria. HEART AND PERICARDIUM: The heart is unremarkable. AORTA AND PULMONARY VASCULATURE: There is no pulmonary arterial filling defect to suggest pulmonary embolism. There is no linear filling defect within the aorta to suggest aortic dissection. MEDIASTINUM: There is no mediastinal lymphadenopathy by size criteria. ANGEL: There is no hilar lymphadenopathy by size criteria. AIRWAY AND ESOPHAGUS: The airway is unremarkable, without endobronchial filling defect. The esophagus is grossly normal. LUNG PARENCHYMA: There is a 0.7 cm nonsolid nodule of the right upper lobe on axial image 20 of series 3. PLEURA: No pleural abnormalities are noted. UPPER ABDOMEN: There is hepatomegaly with fatty infiltration of liver. There is postsurgical change to the upper GI tract. BONES AND SOFT TISSUES: No bone or soft tissue abnormalities are noted. OTHER: None. IMPRESSION: 1. NO PULMONARY ARTERIAL FILLING DEFECT TO SUGGEST PULMONARY EMBOLISM. 2. 0.7 CM NONSOLID NODULE OF THE RIGHT UPPER LOBE. THE RECOMMENDATIONS FOR FOLLOWUP AND MANAGEMENT OF AN INCIDENTALLY DETECTED NONSOLID PULMONARY NODULE GREATER THAN OR EQUAL TO 6 MM IN SIZE, IN A PATIENT WITHOUT A HISTORY OF MALIGNANCY, INCLUDE FOLLOW-UP CT IN 6-12 MONTHS TO CONFIRM PERSISTENCE, THEN CT EVERY 2 YEARS UNTIL 5 YEARS.. 3. HEPATOMEGALY WITH FATTY INFILTRATION OF LIVER. NOTES: SIZE = AVERAGE LENGTH AND WIDTH; HIGH RISK IS DEFINED A HISTORY OF SMOKING OR OTHER KNOW RISK FACTORS FOR LUNG CANCER; LOW RISK IS DEFINED MINIMAL OR ABSENT HISTORY OF SMOKING OR OTHER KNOWN RISK FACTORS. Edith Bermudez, ENRIQUE Thompson, ANGIE Rollins, et al (2017) "Guidelines for Management of Incidental This report is only to be considered final once signed by the Provider(s) as displayed in the "<Electronically Signed by >" field (s). Absence of a signature indicates the report is in a draft status and still needs to be finalized. In the event this document was created by someone other than the signing Provider, the individual initiating the document will be listed in the "Entered by:" or "Dictated by:" wagoner. 1 of 2 EKG Data: Tele 07/14/2019: NSR rate 70-80's Assessment/Plan 53 yo female who presented with afib, RVR with pleuritic CP, fatigue. She states she did not feel racing yesterday, but has intermittently in the past for 2 years. Now with resolution of the above symptoms in NSR. New sensation of enlarged lymph notes. PAF: Contributing factors include: Age/weight/alcohol/past smoking hx. Currently on amiodarone loading and Eliquis. I recommend continue amiodarone 400 BID x 5 days, then 200 mg PO BID for 5 days then 200mg/day there after. Continue Eliquis 1 month at least even with young age. She is aware of the importance of ETOH avoidance, weight loss, eventual sleep study and to avoid keto dieting. Patient concerned about amiodarone side effects, I educated patient on timing of amiodarone side effects, she is aware there are other antiarrhythmic options that could be substituted in the future. This is to be addressed in follow up outpatient. F/u with Dr Mckeon approx 2 weeks.( placed appointment in DC plan) Elevated ESR/CRP and patient noting swollen glands neck, defer to hospitalists. Aware COVID negative from sample in [place]. From a cardiac standpoint OK to go home. I educated to avoid use of NSAIDs and in follow up we will discuss duration of OAC use, potential alternative antiarrhythmics given risk of toxic side effects from Amiodarone correction. For now she is agreeable to Eliquis 5 mg Po BID and Amiodarone therapy. Continue Digoxin at current dose. rates are 70-80's in NSR however, in AF 150-180's case discussed with Dr. Viveros who agrees with plan of care. Attending: Oj Viveros <Oj Viveros - Last Filed: 07/15/19 13:55> Medications Active Medications: Acetaminophen (Tylenol Tab*) 650 mg PO Q4H PRN PRN Reason: MILD PAIN or TEMP > 100.4 Last Admin: 07/15/19 09:01 Dose: 650 mg Al Hydrox/Mg Hydrox/Simethicone (Maalox Plus*) 30 ml PO Q6H PRN PRN Reason: INDIGESTION Amiodarone HCl (Cordarone Tab*) 400 mg PO BID [facility] Stop: 07/20/19 22:00 Last Admin: 07/15/19 09:00 Dose: 400 mg Apixaban (Eliquis*) 5 mg PO BID [facility] Last Admin: 07/15/19 09:01 Dose: 5 mg Clonazepam (Klonopin Tab(*)) 0.5 mg PO BID PRN PRN Reason: INSOMNIA Last Admin: 07/14/19 21:08 Dose: 0.5 mg Cyanocobalamin (Vitamin B12 Tab*) 1,000 mcg PO DAILY [facility] Last Admin: 07/15/19 09:00 Dose: 1,000 mcg Cyclobenzaprine HCl (Flexeril Tab*) 5 mg PO TID PRN PRN Reason: SPASMS Last Admin: 07/14/19 21:18 Dose: 5 mg Digoxin (Lanoxin Tab*) 0.25 mg PO 0900 [facility] Last Admin: 07/15/19 09:00 Dose: 0.25 mg Docusate Sodium (Colace Cap*) 100 mg PO BID [facility] Last Admin: 07/15/19 09:08 Dose: Not Given Ondansetron HCl (Zofran Inj*) 4 mg IV Q4H PRN PRN Reason: NAUSEA/VOMITING Pantoprazole Sodium (Protonix Tab*) 40 mg PO DAILY [facility] Last Admin: 07/15/19 09:08 Dose: Not Given Venlafaxine HCl (Effexor Xr Cap*) 75 mg PO BEDTIME [facility] Last Admin: 07/14/19 21:10 Dose: 75 mg Objective Vital Signs: Temp Pulse Resp BP Pulse Ox 97.7 F 70 16 124/72 98 07/15/19 12:00 07/15/19 12:00 07/15/19 12:00 07/15/19 12:00 07/15/19 12:00 Laboratory Results: 07/14/19 05:50 07/15/19 08:13 TSH 3.50 mcIU/mL (0.34-5.60) 07/15/19 08:13 07/13/19 05:45 Troponin I 0.01 Assessment/Plan Patient examined and case reviewed with Ms. Funes. Agree with Plan. Blessing Viveros MD4.2.20
--- NOTE | 2019-07-15 15:16 | DS ---
CC: Dr. Jonatan Copeland; Dr. Jluis Mckeon * DISCHARGE SUMMARY: DATE OF ADMISSION: 07/13/19 DATE OF DISCHARGE: 07/15/19 PRIMARY CARE PROVIDER: Dr. Jonatan Copeland. ATTENDING PHYSICIAN: Dr. Peg Farris.* (DICTATED BY ANNA OSORIO NP) PRIMARY DIAGNOSIS: 1. New-onset atrial fibrillation with rapid ventricular response. SECONDARY DIAGNOSES: 1. Anxiety. 2. Gastroesophageal reflux disease. 3. Obesity. 4. Alcohol abuse. STUDIES WHILE IN THE HOSPITAL: 1. Chest CTA on 07/13/19 reads as no pulmonary arterial filling defect to suggest pulmonary embolism. A 0.7 cm nonsolid nodule of the right upper lobe. The recommendations for followup and management of an incidentally detected nonsolid pulmonary nodule greater than or equal to 6 mm in size in a patient without history of malignancy include followup CT in 6 to 12 months to confirm persistence, then CT every 2 years until 5 years. Hepatomegaly with fatty infiltration of the liver. 2. EKG on 07/13/19 shows atrial fibrillation with a rate of 149, ST depression in V2 and V3. 3. EKG on 07/13/19 shows normal sinus rhythm with a rate of 77, ST depression resolved. 4. Transthoracic echocardiogram on 07/13/19 reads as the left ventricular cavity size is low normal. Wall thickness is mildly to moderately increased. Systolic function is at the lower limits of normal. The estimated ejection fraction is 50% to 55%. Wall motion is normal and there are no regional wall motion abnormalities. Right ventricular systolic function is normal. Systolic pressure is within the normal range. Left atrium is mildly dilated. There is trace MR. There is no evidence of . There is mild TR. No prior studies available for comparison. CONSULTATIONS WHILE IN THE HOSPITAL: 1. Dr. Ascencio and Jenna Funes NP, from Cardiology. HISTORY OF PRESENT ILLNESS AND HOSPITAL COURSE: Ms. Mckinnon is a 53-year-old female with past medical history of anxiety, GERD, obesity, and alcohol use, who presented to the emergency room on 07/13/19 with chest pain and shortness of breath. She initially presented to [facility] Room, though was transferred here where she was noted to be in new-onset rapid atrial fibrillation. Lab work was generally unremarkable except for an elevated ESR of 30 and an elevated CRP of 88. Vital signs were otherwise stable except for her heart rate, though the patient was started on an amiodarone drip in the emergency room and so was admitted to the intensive care unit. The patient was swabbed for COVID at [facility] and she was noted to be COVID negative on a swab on 07/12/19. It was determined that chest pain and shortness of breath were associated to RVR. Cardiology was consulted. At that point, they recommended continuing amiodarone and digoxin. She was not a candidate for cardioversion. On 07/14/19, the patient was noted to self convert into normal sinus rhythm while having a bowel movement. She was then transferred up to the floor. Cardiology transitioned her over to oral amiodarone. She was seen by Jenna Funes NP, with Cardiology again today, who advised that the patient was stable for discharge from cardiac standpoint. They recommended continuing amiodarone load and then maintenance amiodarone as well as digoxin and Eliquis. The patient has remained in normal sinus rhythm with rates in the 70s to 80s. The patient reports feeling well today. Her only complaint is feeling as though she has swollen glands in her neck, which are slightly painful with swallowing. On exam, she is alert and oriented x4 with no focal neurological deficits. Heart has a regular rate and rhythm without murmurs, rubs, or gallops. Lungs are clear to auscultation without rhonchi, wheezes, or rales. There is no edema. There is no lymphadenopathy. Adenoids may be slightly enlarged, though not significantly and there is no airway compromise. Thyroid is nonpalpable. Physical exam is otherwise benign. Ms. Mckinnon is stable for discharge. Most recent vitals are as follows: Temp 97.7, heart rate 70, respiratory rate 16, oxygen saturation 98% on room air, blood pressure 124/72. DISCHARGE MEDICATIONS: New: 1. Amiodarone 400 mg p.o. x5 days. 2. Amiodarone 200 mg p.o. x5 days. 3. Amiodarone 200 mg p.o. daily. 4. Eliquis 5 mg p.o. b.i.d. 5. Digoxin 0.25 mg p.o. daily. Continued: 1. Clonazepam 0.5 mg p.o. b.i.d. p.r.n. insomnia. 2. Vitamin B12 500 mcg p.o. daily. 3. Venlafaxine 37.5 mg p.o. q.a.m. 4. Venlafaxine 75 mg p.o. q.p.m. 5. Ascorbic acid 500 mg p.o. daily. 6. Vitamin D3 50,000 units p.o. weekly. 7. Flexeril 5 mg p.o. t.i.d. p.r.n. muscle spasm. DISCHARGE PLAN: Ms. Mckinnon will be discharged home. Activity will be as tolerated. Diet will be heart-healthy. Medications are noted above. The patient will need to continue on amiodarone load as per Cardiology. This will be 400 mg b.i.d. x5 days, then 200 mg b.i.d. x5 days, then 200 mg daily thereafter. She will additionally need to continue on Eliquis and digoxin. Her home medications otherwise remain unchanged. She has been provided with a work note to return to work on 07/19/19, and she was provided with proof of a negative COVID swab. She indicated that her job was requesting this. She should follow up with her primary care provider in the next 4 to 7 days. She will also need to follow up with Cardiology and an appointment has been made for her with Dr. Mckeon on 07/28/19 at 10:15 a.m. She should return to the emergency room or nearest hospital for any worsening of symptoms, shortness of breath, lightheadedness, dizziness, chest discomfort, high fevers, chills, night sweats, loss of consciousness, or any other worrisome signs or symptoms. DISCHARGE CONDITION: Stable. DISCHARGE DISPOSITION: Home. This is a summarized report of a complex medical history and hospital stay. For further details, please see the entire medical record. TIME SPENT: Approximately 45 minutes was spent on this discharge. ANNA OSORIO, NING [id number]/[facility] #: [id number] CELINE
== END 2019-07-15 15:45 | disposition home or self-care (01) | DRG 201 ==
LOC: ICU 01:50 → MEDTELE 07-14 12:26
PROVIDERS: ADMIT Family Medicine; ATTEND Hospitalist
DX: I48.0 Paroxysmal atrial fibrillation (principal); F41.9 Anxiety disorder, unspecified; K21.9 Gastro-esophageal reflux disease without esophagitis; F10.10 Alcohol abuse, uncomplicated; F32.9 Major depressive disorder, single episode, unspecified; R91.1 Solitary pulmonary nodule; K76.0 Fatty (change of) liver, not elsewhere classified; I08.1 Rheumatic disorders of both mitral and tricuspid valves; M19.90 Unspecified osteoarthritis, unspecified site; R59.0 Localized enlarged lymph nodes; E66.9 Obesity, unspecified; Y90.9 Presence of alcohol in blood, level not specified; Z79.01 Long term (current) use of anticoagulants; Z68.38 Body mass index [BMI] 38.0-38.9, adult; Z98.84 Bariatric surgery status; Z90.49 Acquired absence of other specified parts of digestive tract; Z87.891 Personal history of nicotine dependence; Z79.899 Other long term (current) drug therapy
CPT/HCPCS: 36415; 71275; 80048; 80162; 83735; 84443; 84484; 85025; 85652; 86140; 93005; 93306; A9270-GY; J0282; Q9967